=== PATIENT | female | born 1930 | race Caucasian/White ===

== ENCOUNTER → 2016-12-23 | Outpatient (CLI) | payer OTHER ==
[~2016-12-23] MED LIST: APAP500; ASACOL400 MG PO; ASPIRIN81 M2 PO; COLESTID1 GM PO; COLESTIPOL HCL1 G1 PO; COZAAR 50 MG TA50 M2 PO; DICLOFENAC SODI75 M1 PO; DIFLUCAN PO; ENTOCORT EC3 MG PO; IMDUR 30 MG TAB30 M1 PO; LOMOTIL TABLET1 EACH PO; MAG-OX 400 TAB400 MG PO; PROPOXY-N/APAP1 TAB PO; PROPOXYPHENE; PROTONIX40 M2 PO; SILVADENE20 GM TP; SPIRIVA INH; SYNTHROID137 MCG PO; THERAGRAN STRE1 EACH PO; ULTRAM 50MG TAB50 MG PO; XANAX XR1 MG PO
== END ==
LOC: RAD 08:30
DX: J44.9 Chronic obstructive pulmonary disease, unspecified (principal)